=== PATIENT | female | born 1960 | race Caucasian/White ===

== ENCOUNTER → 2023-10-05 13:15 | Outpatient (CLI) | payer MEDICARE, MEDICAID, SELFPAY ==
--- NOTE | 2023-10-05 | PATH_ITS ---
Note [facility] Accession Number: [id number] TESTS RESULT FLAG UNITS REF RANGE LAB Clinician Provided Cytology Information No. of containers..01 Other (Miscellaneous) No. of containers..03 Previously Prepared Cytology Slide Source: LEFT PAROTID SINGLE MASS DIAGNOSIS: LEFT PAROTID SINGLE MASS INCONCLUSIVE. 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 Pathologist ICD10: D37.030 Signed out by: Milly Nelson MD, Pathologist NPI- [id number] Performed by: Ryan Andre, Marketing Professor ([facility]) Gross description: 30 CC, COLORLESS, CLEAR RECIEVED: IN CYTOLYT WITH 6 ALCOHOL FIXED AND 7 QUICK STAINED SLIDES. /VDU 10/06/[address] [place] [address] FLAG LEGEND: L-Low Normal,H-High Normal,LL-Alert Low,HH-Alert High <-Panic Low,>-Panic High,A-Abnormal,AA-Critical Abnormal Performed at: 01 =Z [facility] [address], [place] [address] Jama Felipe MD, Performed at: 01 [facility] [address], [place], [place] [id number] MD Jama Felipe MD Phone: [phone]
--- NOTE | 2023-10-05 13:17 | DI.US.S_ITS ---
PROCEDURE: US FINE NEEDLE ASPIRATION INDICATIONS: NECK MASS / MASS OF LEFT PAROTID GLAND TECHNIQUE: The indications, alternatives, benefits, risks, and complications of the procedure were explained to the patient. Written informed consent was obtained and placed in the chart. Real-time sonography was utilized to choose the site for percutaneous lymph node sampling. The skin was prepped and draped in the usual sterile fashion. 1% lidocaine was infiltrated down to the site of interest. Serial hypodermic needles were then advanced into the site of interest under direct sonographic visualization, and serial needle aspirates were obtained. The needles were then withdrawn; a bandage was applied to the procedure site. COMPARISON: [facility], US, US SOFT TISSUE HEAD AND NECK, 10/05/2023, 13:26. FINDINGS: Sample site(s): Left parotid mass Needle: 25 the. Number of passes: 6. Medications: 1% lidocaine for local anaesthesia. Complications: None. IMPRESSION: Successful ultrasound-guided left parotid mass fine needle aspiration, with cytology results pending. Dictated by: Denice Veras M.D. on 10/06/2023 at 16:42 Approved by: Denice Veras M.D. on 10/06/2023 at 16:42
--- NOTE | 2023-10-05 13:17 | DI.US.S_ITS ---
PROCEDURE: US SOFT TISSUE HEAD AND NECK INDICATIONS: NECK MASS / MASS OF LEFT PAROTID GLAND TECHNIQUE: Real-time scanning was performed of the neck region of interest, with image documentation. COMPARISON: Outside Film, CT, CT SOFT TISSUE NECK WITH CONTRAST, 04/06/2022, 13:23. [facility], US, US FINE NEEDLE ASPIRATION, 10/05/2023, 13:56. FINDINGS: Sonographic images demonstrate a 2.1 x 2.0 x 1.8 cm complex mass within the inferior region. This corresponds to prior CT abnormality. IMPRESSION: Complex mass within the inferior parotid region. Differential includes both benign and malignant. FNA is recommended. Dictated by: Denice Veras M.D. on 10/05/2023 at 22:59 Approved by: Denice Veras M.D. on 10/05/2023 at 23:00
== END ==
PROVIDERS: Referring Provider Otolaryngology; Visit Provider Otolaryngology
DX: K11.8 Other diseases of salivary glands (principal); R22.1 Localized swelling, mass and lump, neck
CPT/HCPCS: 10005; 76536